=== PATIENT | female | born 2000 | race Caucasian/White ===

== ENCOUNTER 2023-09-04 07:34 | Inpatient (IN) | payer OTHER, SELFPAY ==
[2023-09-03] VITALS (13 sets, daily range): BP systolic 96–136; BP diastolic 50–99; PULSE 98–141; BMI 60.9; BMI 59.6
--- NOTE | 2023-09-03 15:09 | ED.GENMED ---
History of Present Illness
General
Chief Complaint: Dizziness
Source: patient
Exam Limitations: none
Time Seen by Provider: 09/03/23 15:01
Nursing documentation reviewed up to this point in time: agreed with
History of Present Illness
History of Present Illness:
Patient to ED wt complaint of dizziness, SOB, rapid hear rate when standing. Symptoms started last PM. No prior history of same. Denies fever/chills, vomiting, diarrhea. Reports nausea. Denies any chest or abdominal pain. Brought self to ED
for eval.
Past History
Past History
ED Past Medical History: Asthma, GERD, Hypothyroidism and Other (psoriasis, rosacea, Sciatica)
ED Past Surgical History: None
Patient has exhibited threatening behavior?: No
Social History
Tobacco: Non-smoker
Alcohol: Occasional
Drug: None
Personal: Single
Living: with family
Employment: Not employed
Family History
Family History: Diabetes
Review of Systems
Review of Systems
Allergies reviewed?: Yes
All Other Systems: ROS reviewed and negative except as documented in HPI and ROS
Constitutional: Reports no symptoms
EENT: Reports no symptoms
Respiratory: Reports trouble breathing
Cardiac: Reports other (tachycardia)
ABD/GI: Reports nausea
: Reports no symptoms
Musculoskeletal: Reports no symptoms
Skin: Reports no symptoms
Neurological: Reports dizzy
Psychiatric: Reports no symptoms
Phy Exam
General Physical Exam
General Presentation: well appearing and no apparent distress
General age: appears stated age
General Skin: warm and dry
General Habitus: obese
General Mental: alert
Cardiovascular Exam
Cardiovascular Exam: regular rate/rhythm and no edema
Pulmonary Exam
Pulmonary Exam: lungs clear and no respiratory distress
Gastrointestinal Exam
Gastrointestinal Exam: non tender, soft, no organomegaly, no pulsatile mass and no cva tenderness
Rectal Exam: normal external exam, normal sphincter tone, hemorrhoids and no stool
Musculoskeletal Exam
Musculoskeletal Exam: full ROM
Skin Exam
Skin Exam: normal color, warm/dry and no rash
Psychiatric Exam
Psychiatric Exam: normal mood/affect
Course
Orders/Labs/Results
Orders:
Orders
09/03/23 14:28
ECG [Electrocardiogram (*1)] Urgent
Reason for Study: Vertigo / Dizzy
EKG- Treatment ONCE
09/03/23 Dinner
Regular
At Your Request: Full Participation
Does patient need a safe tray?: No
09/03/23 15:07
Orthostatic VS- Treatment ONCE
09/03/23 15:08
Urinalysis Reflex To Culture Urgent
0.9% Sodium Chloride 1000 ml [Nss] 1,000 ml IV BOLUS
Test Result ONCE
09/03/23 15:10
Ondansetron Injectable [Zofran] 4 mg IV NOW STA
09/03/23 15:51
Complete Blood Count/With Diff Urgent
Comprehensive Metabolic Panel Urgent
D-Dimer Urgent
HCG, Serum Qualitative Screen Urgent
Lipase Urgent
TSH Reflex To Free T4 Urgent
09/03/23 16:29
* Blood Bank Products Urgent
Blood Bank Products: *Packed RBC Leuko(PRBC's)
Quantity: 2
Transfuse Today: Yes
Reason: Anemia
09/03/23 16:50
Type And Crossmatch Urgent
09/03/23 17:04
Admit/Transfer Patient As Directed
Co-Sign Provider:
Level of Care: Observation services
Assign to:: Medical/Surgical
Physician / Group: [email or web address]
Diagnosis: anemia
Code Status As Directed
Resuscitation Status: Full Code
09/03/23 18:34
Phenyleph/Pramoxin/Glycr/W.pet [Preparation H Max Strength Pain Relief Cream] See Dose Instructions RECTAL Q6HPRN PRN
09/03/23 18:34
Activity As Directed
Activity Level: As Tolerated
Pneumatic Compression Sleeves As Directed
Type: Knee high
Vital Signs As Directed
Frequency: Per unit guidelines
DX Deep Vein Thrombosis Video Routine
09/03/23 19:48
B12 [Vitamin B12] Routine
Ferritin Routine
Folate Routine
Iron Routine
TIBC [Total Iron Binding] Routine
09/04/23 06:00
Complete Blood Count/With Diff IN AM
Comprehensive Metabolic Panel IN AM
Levothyroxine [Synthroid] 100 mcg PO DAILY @ 0600
09/04/23 08:00
FOLic ACID [Folvite] 1 mg PO DAILY
Meloxicam [Mobic] 15 mg PO DAILY
Multivitamin [Theragran] 1 tablet PO DAILY
Pantoprazole [Protonix] 40 mg PO DAILY
09/04/23 22:00
Methotrexate Sodium [Methotrexate] 15 mg PO WE@2200
Abnormal Lab Results
09/03/23 09/03/23
15:51 16:50
RBC 2.57 L 10^6/uL
(4.20-5.40)
Hgb 7.3 L g/dL
(12.0-16.0)
Hct 22.3 L %
(37.0-47.0)
MCHC 32.7 L g/dL
(33.0-37.0)
RDW 15.8 H %
(11.5-14.5)
Abs Immat Gran (auto) 0.1 H 10^3/uL
(0-0.05)
Immature Gran % 1.3 H %
(0-0.5)
Creatinine 1.1 H mg/dL
(0.6-1.0)
Glucose 112 H mg/dl
(70-99)
ALT 49 H U/L
(0-35)
Crossmatch IS Only See Detail
09/03/23 15:51
09/03/23 15:51
Vital Signs
Initial and Last Documented VS:
Initial Vital Signs
Temp Pulse Resp BP Pulse Ox
99.2 F 110 20 136/99 98
09/03/23 14:24 09/03/23 14:24 09/03/23 14:24 09/03/23 14:24 09/03/23 14:24
Last Documented Vital Signs
Temp Pulse Resp BP Pulse Ox
98.2 F 89 18 121/65 100
09/03/23 21:01 09/03/23 21:01 09/03/23 21:01 09/03/23 21:01 09/03/23 21:01
*Critical Care Note
Total Time (30-74mins, 75-104mins- exclusive of procedures): Not Applicable
Update Note
Update Note:
Hgb 7.3/25.7. No history of anemia. States she is currently working on clearance for bariatric surgery. She had an endoscopy in June which revealed 'ulcers'. Placed on carafate and protonix. Repeat endoscopy 08/12/2023 - resolution of ulcers. She
denies any abdominal pain. COntinues to take pantoprazole daily. Reports 1 small external hemorrhoid which she states bled this week. Reporst small amt of red blood on tissue. Currenlty menstruating. No changes in menstration. Denies heavy
periods. Rectal exam performed. No stool in rectum, no blood. Orthostatic VS results noted. BP remains stable however she becomes tachycardic with minimal movement. SOB with minimal activity. Will admit to hospitalist for symptomatic anemia.
Blood consent obtained. Will initiate transfusion in dept.
ED Attending Note
-
Portions of this chart may have been created with voice recognition software.� Occasional wrong word or��sound alike� substitutions may have occurred due to the inherent limitations of voice recognition software.
Discharge Plan
Departure
Patient Disposition: Admit
Date of Disposition: 09/03/23
Time of Disposition: 16:39
Presentation/result/management discussed w/ accepting MD/DO: Hospitalist
Patient with high blood pressure during this ER visit?: No
Condition: Fair
Covid-19: Not Applicable
Discharge Problem:
Symptomatic anemia
Interventions
Interventions:
*Risk Screen - Suicide Last Done: 09/03/23 14:24
*General Assessment Last Done: 09/03/23 14:24
*Neglect/Abuse Screening Last Done: 09/03/23 14:24
ED- Fall Risk Assessment Last Done: 09/03/23 16:30
*ED COVID-19 Vaccine History Last Done: 09/03/23 18:29
*Nursing Disposition Last Done: 09/03/23 18:20
ED- Neurological Assessment Last Done: 09/03/23 15:14
ED- Cardiac Assessment Last Done: 09/03/23 15:14
ED Swallowing Screen Last Done: 09/03/23 15:17
Discharge Date and Time
Discharge Date/Time: 09/03/23 18:20
--- NOTE | 2023-09-03 15:36 | EDRN ---
IV VAT RN in room w/ pt at this time. Orthostatic VS just completed. Pt had tinnitis when lying flat, sl nausea w/ dizziness on sitting, very dizzy w/ increased nausea and very increased dizziness (described as spinning) and HR up to 141.
[2023-09-03 16:10] LABS: % Basophils 0.5 % (0-2); % Eosinophils 1.2 % (0-6); % Immature Granulocytes 1.3 % (0-0.5); % Lymphocytes 22.4 % (20.5-51.1); % Monocytes 6.8 % (1.7-9.3); % Neutrophils 67.8 % (42.2-75.2); Absolute Basophils 0.1 10^3/uL (0-0.2); Absolute Eosinophils 0.1 10^3/uL (0-0.7); Absolute Immature Granulocytes 0.1 10^3/uL (0-0.05); Absolute Lymphocytes 2.1 10^3/uL (1.2-3.4); Absolute Monocytes 0.6 10^3/uL (0.1-0.6); Absolute Neutrophils 6.4 10^3/uL (1.4-6.5); Hematocrit 22.3 % (37.0-47.0); Hemoglobin 7.3 g/dL (12.0-16.0); Mean Corp Hgb Conc. 32.7 g/dL (33.0-37.0); Mean Corpuscular Hgb 28.4 pg (27.0-31.0); Mean Corpuscular Volume 86.8 fL (81.0-99.0); Mean Platelet Volume 10.2 fL (7.4-10.4); Nucleated Red Blood Cells % 0.3 %; Platelet Count 317 10^3/uL (130-400); Red Blood Cell Count 2.57 10^6/uL (4.20-5.40); Red Cell Dist. Width 15.8 % (11.5-14.5); White Blood Cell Count 9.5 10^3/uL (4.8-10.8)
[2023-09-03 16:24] LABS: ALT (SGPT) 49 U/L (0-35); AST (SGOT) 29 U/L (14-36); Albumin 4.1 g/dl (3.5-5.0); Alkaline Phosphatase 53 U/L (38-126); Blood Urea Nitrogen 13 mg/dl (7-17); Calcium 9.6 mg/dl (8.4-10.2); Carbon Dioxide 23 mmol/L (22-30); Chloride 105 mmol/L (98-107); Estimated Creatinine Clearance > 125 ml/min; Glucose 112 mg/dl (70-99); Lipase 86 U/L (23-300); Potassium 4.4 mmol/L (3.5-5.1); Sodium 138 mmol/L (135-145); Total Bilirubin 0.6 mg/dl (0.2-1.3); Total Protein 6.5 g/dl (6.3-8.2); eGFR > 60.00
[2023-09-03 16:28] LABS: HCG, Serum Qualitative Screen Negative
[2023-09-03] MEDS: ZOFRAN 4 MG IV (16:33)
[2023-09-03] MEDS: NSS 1000 IV (16:33)
[2023-09-03 16:49] LABS: D-Dimer 0.28 ug/mlFEU (0.00-0.50)
[2023-09-03 16:54] LABS: TSH Reflex To Free T4 4.02 uIU/ml (0.47-4.68)
--- NOTE | 2023-09-03 16:59 | EDRN ---
Dr. Aguillon in to see pt for hospitalist group.
--- NOTE | 2023-09-03 17:11 | HPS.HSE ---
Family Physician
-
Family Physician: Shola Armenta
Chief Complaint
-
dizziness
History of Present Illness
22-year-old female past medical history of asthma, GERD, hypothyroidism, psoriatic arthritis, presenting with dizziness, shortness of breath, rapid heart rate when standing and nausea which started last night. Denies fevers or chills, vomiting or
diarrhea, chest pain, abdominal pain or diarrhea. Yesterday she felt that she had some blurry vision described as aural with some headache but this had resolved.
Patient states that she is currently having her period. She does have moderate amount of blood loss during the first 2 days but denies history of heavy periods in the past. She also had hemorrhoidal bleeding over the past few days with a moderate
amount of blood. She does have some rectal discomfort when she attempts to have a bowel movement.
She denies smoking or alcohol use.
Medical History
Past Medical History
Past Medical History: Reports Other (asthma, GERD, hypothyroidism, psoriatic arthritis)
Past Surgical History: Reports None
Social History
Tobacco: Non-smoker
Alcohol: None
Drug: None
Family History
Family History: Not pertinent
Allergies / Home Medications
Allergies reflects when Allergies were last updated in [facility].
Home Medications with original date entered in [facility]
Allergy/Medication List:
Allergies
Allergy/AdvReac Type Severity Reaction Status Date / Time
amoxicillin [Amoxicillin] Allergy Hives Verified 09/03/23 14:24
Penicillins Allergy Hives Verified 09/03/23 14:24
lactose AdvReac Intermediate Nausea / Verified 09/03/23 14:24
Vomiting
Home Medications
adalimumab 40 mg/0.4 mL subcutaneous pen kit (Humira(CF) Pen) 40 mg SC Q2W 09/03/23
folic acid 1 mg tablet 1 mg PO DAILY 09/03/23
levothyroxine 100 mcg tablet 100 mcg PO DAILY 09/03/23
meloxicam 15 mg tablet 15 mg PO DAILY 09/03/23
methotrexate sodium 2.5 mg tablet 15 mg PO WE@2200 09/03/23
pantoprazole 40 mg tablet,delayed release 40 mg PO DAILY 09/03/23
therapeutic multivitamin 1 tab PO DAILY 09/03/23
Review of Systems
-
History Source: Patient
A 12 point ROS was completed and negative except as noted: Yes
Constitutional: Reports No Symptoms
EENT: Reports No Symptoms
Respiratory: Reports No Symptoms
Cardiac: Reports No Symptoms
Abdomen/GI: Reports See HPI
: Reports No Symptoms
Musculoskeletal: Reports No Symptoms
Skin: Reports No Symptoms
Neurological: Reports No Symptoms
Endocrine: Reports No Symptoms
Hematologic/Lymphatic: Reports No Symptoms
Psych: Reports No Symptoms
Physical Exam
Vital Signs
Vital Signs
Temp Pulse Resp BP Pulse Ox
99.2 F 145 16 114/78 100
09/03/23 14:24 09/03/23 15:34 09/03/23 15:34 09/03/23 15:34 09/03/23 15:34
Physical Exam
General: Well Developed, Well Nourished and No Apparent Distress
HEENT: NormoCephalic, Moist mucous membranes and Atraumatic
Respiratory: Clear
Cardiac: S1/S2 and Regular Rhythm; No Murmur or Rub
GI: Soft, Non Tender, Non Distended and Normal Bowel Sounds; No Organomegaly
Rectal: Deferred by Provider
Musculoskeletal: No Clubbing, No Cyanosis and No Edema
Skin: No Rash
Neuro: Nonfocal/grossly intact
Laboratory Results
-
09/03/23 15:51
09/03/23 15:51
Laboratory Results
Total Bilirubin 0.6 mg/dl (0.2-1.3) 09/03/23 15:51
AST 29 U/L (14-36) 09/03/23 15:51
ALT 49 U/L (0-35) H 09/03/23 15:51
Alkaline Phosphatase 53 U/L (38-126) 09/03/23 15:51
Lipase 86 U/L (23-300) 09/03/23 15:51
Data Reviewed
-
Lab Data: Labs Reviewed by me
Old Records: Reviewed
Impression/Plan
-
IMPRESSION:
PLAN:
# Symptomatic normocytic anemia secondary to menstrual losses/hemorrhoidal bleeding
-2 units of blood transfusion
-Check iron studies, B12 and folate
-Preparation H for hemorrhoids, outpatient follow-up with colorectal if persistent problem
Asthma
GERD
-Continue Protonix
Hypothyroidism
-Continue levothyroxine
Psoriatic arthritis
-Continue meloxicam
-On methotrexate
-On Humira
-Continue folate
Full code
DVT prophylaxis�SCDs
Regular diet
--- NOTE | 2023-09-03 18:14 | EDRN ---
Type and cross match results just posted in chart at this time. Pt to go up to floor at this time. pRBCs just showed up ready to infuse.
--- NOTE | 2023-09-03 18:39 | PTCARENOTE ---
Arrived to unit via stretcher, patient stood and pivot to bed due to concerns of dizziness. Oriented to room. Call bel within reach. Advised patient to ring for assistance to bathroom.
[2023-09-03 20:52] LABS: Iron 21 ug/dl (37-170)
[2023-09-03 21:01] LABS: Percent Saturation 6 % (20-50); Total Iron Binding Capacity 331 ug/dl (265-497)
[2023-09-03 21:56] LABS: Folate > 20.0 ng/ml (2.76-20); Vitamin B12 305 pg/ml (239-931)
[2023-09-04] VITALS (8 sets, daily range): BP systolic 123–139; BP diastolic 65–79
--- NOTE | 2023-09-04 03:05 | PTCARENOTE ---
Pt received 2 units of PRBCs. No issues or sign of blood allergic reaction noted at this time.
[2023-09-04] MEDS: SYNTHROID 100 MCG PO (05:34)
[2023-09-04] MEDS: PROTONIX 40 MG PO (07:30)
[2023-09-04] MEDS: MOBIC 15 MG PO (07:30)
[2023-09-04] MEDS: THERAGRAN 1 TABLET PO (07:31)
[2023-09-04] MEDS: FOLVITE 1 MG PO (07:31)
[2023-09-04 07:43] LABS: ALT (SGPT) 40 U/L (0-35); AST (SGOT) 26 U/L (14-36); Albumin 3.1 g/dl (3.5-5.0); Alkaline Phosphatase 43 U/L (38-126); Blood Urea Nitrogen 11 mg/dl (7-17); Calcium 8.8 mg/dl (8.4-10.2); Carbon Dioxide 24 mmol/L (22-30); Chloride 109 mmol/L (98-107); Estimated Creatinine Clearance > 125 ml/min; Glucose 96 mg/dl (70-99); Potassium 3.9 mmol/L (3.5-5.1); Sodium 139 mmol/L (135-145); Total Bilirubin 2.2 mg/dl (0.2-1.3); Total Protein 5.4 g/dl (6.3-8.2); eGFR > 60.00
[2023-09-04] MEDS: VITAMIN B-12 1000 MCG PO (07:54)
[2023-09-04 08:07] LABS: Platelet Count 219 10^3/uL (130-400)
[2023-09-04 08:08] LABS: % Basophils 0.8 % (0-2); % Eosinophils 1.7 % (0-6); % Immature Granulocytes 1.1 % (0-0.5); % Lymphocytes 36.6 % (20.5-51.1); % Neutrophils 52.8 % (42.2-75.2); Absolute Basophils 0.1 10^3/uL (0-0.2); Absolute Eosinophils 0.1 10^3/uL (0-0.7); Absolute Immature Granulocytes 0.1 10^3/uL (0-0.05); Absolute Lymphocytes 2.4 10^3/uL (1.2-3.4); Absolute Monocytes 0.5 10^3/uL (0.1-0.6); Absolute Neutrophils 3.4 10^3/uL (1.4-6.5); Hematocrit 21.6 % (37.0-47.0); Hemoglobin 7.2 g/dL (12.0-16.0); Mean Corp Hgb Conc. 33.3 g/dL (33.0-37.0); Mean Corpuscular Hgb 29.6 pg (27.0-31.0); Mean Corpuscular Volume 88.9 fL (81.0-99.0); Nucleated Red Blood Cells % 0.3 %; Red Blood Cell Count 2.43 10^6/uL (4.20-5.40); Red Cell Dist. Width 15.2 % (11.5-14.5); White Blood Cell Count 6.5 10^3/uL (4.8-10.8)
--- NOTE | 2023-09-04 10:43 | W.PN.HOSP.TC ---
Today's Communication/Plan
-
Monitor hemoglobin
IV iron
GI consult
Request records
Assessment / Plan
Assessment / Plan
Gen-AAOx3, NAD, morbid obesity
HEENT-NC, AT, anicteric, clear oral mm
Neck-supple
CV-reg, no M, +S1/S2
Lungs-clear B/L
Abd-soft, NT, ND
Ext-no edema
Musculoskeletal-no cyanosis, clubbing
Skin-warm and dry
Neuro-grossly non-focal
Psych-calm, cooperative
Symptomatic anemia -due to iron deficiency anemia due to suspected GI bleed. Hemoglobin 7.3 on admission, 7.2 today despite 2 units of transfusion overnight. Recheck hemoglobin at noon time and may need further transfusion. Iron deficiency noted
on labs, IV iron ordered. Degree of anemia is likely not explained by simple hemorrhoids. She denies heavy menses.
Baseline hemoglobin of 14 in February of this year, confirmed with her primary care physician's office.
Elevated total bilirubin noted, check direct bilirubin. Check LDH.
Hx PUD -patient reportedly had gastric ulcers noted on EGD in June 2023, completed in [facility]. Reportedly had resolution of ulcers on repeat EGD on August 11. Treated with Carafate 4 times a day and subsequently Protonix twice daily.
Records have been requested. Given significant hemoglobin drop and symptoms will consult GI. She has never had a colonoscopy.
Stop NSAIDs, she takes meloxicam daily. Discussed with patient.
Psoriatic arthritis -on immunosuppression.
Hypothyroidism -continue levothyroxine.
GERD
Mild intermittent asthma -stable.
Morbid obesity due to excess calories
Full code
Anticipated Discharge: 24 - 48 hours
Subjective/Interval History
-
Date of Service: September 04, 2023
Patient seen and examined. Still feeling lightheaded with standing. Denies shortness of breath.
Objective Data
-
Labs:
Laboratory Results
09/04/23 09/04/23
06:38 12:00
WBC 6.5
Hgb 7.2 L Pending
Hct 21.6 L Pending
Plt Count 219 D
Sodium 139
Potassium 3.9
Chloride 109 H
Carbon Dioxide 24
BUN 11
Creatinine 1.0
Glucose 96
Calcium 8.8
Total Bilirubin 2.2 H D
AST 26
ALT 40 H
Alkaline Phosphatase 43
Vital Signs:
Vital Signs
Temp Pulse Resp BP Pulse Ox
98.9 F 79 16 123/71 100
09/04/23 07:10 09/04/23 07:10 09/04/23 07:10 09/04/23 07:10 09/04/23 07:10
I&O
09/03/23 09/04/23 09/05/23
06:59 06:59 06:59
Intake Total 1000 / 1000
Balance 1000 / 1000
Review of Systems
-
History Source: Patient
All other systems: Reviewed and negative
--- NOTE | 2023-09-04 11:17 | PTCARENOTE ---
Patient received 2 Units of packed RBCs over night. Hgb this morning 7.2. Patient with complaints of SOB when ambulating and slight dizziness. Reinforced to patient to ring for assistance when needing to get OOB. Verbalizes understanding of teaching
and ringing isidro appropriately. Patient to have repeat Hgb this afternoon. B12 oral given and iron IV ordered for this afternoon. Educated patient on new medications and patient understands teaching - denies questions.
[2023-09-04 11:31] LABS: Direct Bilirubin 0.6 mg/dl (0.0-0.4); LDH 188 U/L (120-246)
--- NOTE | 2023-09-04 12:56 | CON.GI ---
Addendum entered and electronically signed by Saad Colunga MD 09/04/23 16:50:
I saw and examined the patient.
The FURNACE KEEPER's note was reviewed and I agree with the note.
Acute symptomatic iron deficiency anemia-denies any overt GI bleeding. Prior history of gastric ulcer. Last EGD in [place] August 2023-resolution of ulcers. No prior colonoscopy
History of psoriasis
Elevated liver test
Hepatic steatosis
Morbid obesity
plan
Continue monitor Hb
Iron supplementation
Patient ate food today. Will keep her on clear liquid tomorrow and schedule for EGD/colonoscopy on Tuesday 09/05 . If negative Capsule endoscopy as outpatient
Original Note:
Consultation
-
Date/Time Consultation Requested: 09/04/23 1040
Date/Time Consultation Performed: 09/04/23 1245
Requesting Provider: Dr. Malik
Performing Provider: Dr. Colunga/CADE Salazar
Reason for Consultation: symptomatic anemia
Medical History
Chief Complaint / HPI
Chief Complaint: dizziness
History of Present Illness:
22-year-old female with past medical history of morbid obesity, psoriatic arthritis, rosacea, sciatica, GERD, peptic ulcer disease, hypothyroidism, possible gastroparesis who presents to the emergency room with dizziness. Asked to evaluate for
symptomatic anemia. The patient states that yesterday in the past couple days she has felt dizzy. She felt particularly dizzy and because of this she proceeded to come to the emergency room. The patient was found to have a hemoglobin of 7.3, she
was transfused 2 units of packed red blood cells and her hemoglobin was 7.2 this morning. Repeat is 7.5 She does have have her menstrual period at the current time however she states that her period is usually 3 to 4 days and she only goes through
3 pads daily. It is never heavy. It is currently not heavy. Her last hemoglobin was checked in February 2023 and this was 14.1. The patient states that she is being evaluated for bariatric surgery and underwent an EGD with her bariatric surgeon
at [place] and on her EGD in February there was food found in her stomach so this was repeated in June. At the EGD in June she states that there were some superficial ulcers that were found. She was placed on Protonix 40 mg twice a day as well as
Carafate. Repeat endoscopy was performed August 12, 2023 and she states that the ulcers had resolved. The patient avoids dunm-uxe-wthbceu NSAIDs. She is on meloxicam for history of psoriatic arthritis. She is also on Humira and methotrexate. The
patient does take folic acid as well. She continues on pantoprazole 40 mg twice a day. The patient denies any fevers, chills, nausea, vomiting, melena, hematochezia, dysphagia or dyne aphasia. No early satiety or unintentional weight loss. Her
last bowel movement was yesterday. Rectal exam was attempted in the ER however there was no stool in the rectal vault. The patient has never had a colonoscopy. She has no family history of inflammatory bowel disease, colon cancer or other GI
malignancies. She has no family history of thalassemia. She has no family history of celiac disease that she is aware of. The patient is not a vegetarian. I performed rectal exam myself and absolutely no stool or any trace of stool in rectal
vault. WBC 6.5, hemoglobin 7.5 up from 7.3 status post 2 units packed red blood cells. MCV the 88.9, MCH 29.6, RDW 15.2, sodium 139, potassium 3.9, chloride 109, CO2 24, BUN 11, creatinine 1.0, glucose 96, iron 21, TIBC 331, percent saturation 6,
ferritin 16, B12 305, folate greater than 20, total bilirubin 2.2 up from 0.6, direct bilirubin 0.6, AST 26, ALT 40, alk phos 43.
Past Medical History
Past Medical History: GERD, Hypothyroidism and Other (Morbid obesity, psoriatic arthritis, rosacea, peptic ulcer disease, possible gastroparesis)
Past Surgical History: None
Social History
Tobacco: Non-Smoker
Alcohol: None
Drug: None
Personal: Single
Family History
Family History: Other (No family history of gastrointestinal malignancy, IBD, celiac disease)
Allergies / Home Medications
Allergy/AdvReac Type Severity Reaction Status Date / Time
amoxicillin [Amoxicillin] Allergy Hives Verified 09/03/23 14:24
lactose Allergy Nausea / Verified 09/03/23 18:38
Vomiting
Penicillins Allergy Hives Verified 09/03/23 14:24
�Medication �Instructions �Recorded
adalimumab 40 mg/0.4 mL 40 mg SC Q2W Autoimmune Disorder 09/03/23
subcutaneous pen kit (Humira(CF)
Pen)
folic acid 1 mg tablet 1 mg PO DAILY Supplement 09/03/23
levothyroxine 100 mcg tablet 100 mcg PO DAILY Thyroid 09/03/23
meloxicam 15 mg tablet 15 mg PO DAILY mild pain 09/03/23
methotrexate sodium 2.5 mg tablet 15 mg PO WE@2200 Anti-Inflammatory 09/03/23
pantoprazole 40 mg tablet,delayed 40 mg PO DAILY Gastrointestinal 09/03/23
release Issue
therapeutic multivitamin 1 tab PO DAILY Supplement 09/03/23
Review of Systems
-
All other systems: A 12 pt ROS was Negative except as stated above in HPI
Vital Signs
Temp Pulse Resp BP Pulse Ox
98.9 F 79 16 123/71 98
09/04/23 07:10 09/04/23 07:10 09/04/23 07:10 09/04/23 07:10 09/04/23 11:13
Physical Exam
Exam
General: No Apparent Distress
HEENT: Anicteric
Respiratory: Clear
Cardiac: Regular Rhythm
GI: Soft, Non Tender, Non Distended and Normal Bowel Sounds
Rectal: Other (No stool in rectal vault)
Skin: Warm and Dry
Neuro: AO x 3
Psych: Calm
Results
WBC 6.5 10^3/uL (4.8-10.8) 09/04/23 06:38
Hgb 7.2 g/dL (12.0-16.0) L 09/04/23 06:38
Hct 21.6 % (37.0-47.0) L 09/04/23 06:38
MCV 88.9 fL (81.0-99.0) 09/04/23 06:38
Plt Count 219 10^3/uL (130-400) D 09/04/23 06:38
Absolute Neuts (auto) 3.4 10^3/uL (1.4-6.5) 09/04/23 06:38
Sodium 139 mmol/L (135-145) 09/04/23 06:38
Potassium 3.9 mmol/L (3.5-5.1) 09/04/23 06:38
Chloride 109 mmol/L (98-107) H 09/04/23 06:38
Carbon Dioxide 24 mmol/L (22-30) 09/04/23 06:38
BUN 11 mg/dl (7-17) 09/04/23 06:38
Creatinine 1.0 mg/dL (0.6-1.0) 09/04/23 06:38
Calcium 8.8 mg/dl (8.4-10.2) 09/04/23 06:38
Total Bilirubin 2.2 mg/dl (0.2-1.3) H D 09/04/23 06:38
AST 26 U/L (14-36) 09/04/23 06:38
ALT 40 U/L (0-35) H 09/04/23 06:38
Alkaline Phosphatase 43 U/L (38-126) 09/04/23 06:38
Lipase 86 U/L (23-300) 09/03/23 15:51
Diagnostic Image Results:
None this admission
Prior GI Procedures:
EGD: Per patient was done by bariatric surgeon. EGD February 2023 'food in stomach'. Repeat June 2023 'stomach ulcers'. Repeat August 12, 2023 'normal, no further ulcers'.
Colonoscopy: Never had
Assessment / Plan
-
22-year-old female with past medical history of morbid obesity, psoriatic arthritis, rosacea, sciatica, GERD, peptic ulcer disease, hypothyroidism, possible gastroparesis who presents to the emergency room with dizziness. Asked to evaluate for
symptomatic anemia. The patient states that yesterday in the past couple days she has felt dizzy. She felt particularly dizzy and because of this she proceeded to come to the emergency room. The patient was found to have a hemoglobin of 7.3, she
was transfused 2 units of packed red blood cells and her hemoglobin was 7.2 this morning. Repeat is 7.5 She does have have her menstrual period at the current time however she states that her period is usually 3 to 4 days and she only goes through
3 pads daily. It is never heavy. It is currently not heavy. Her last hemoglobin was checked in February 2023 and this was 14.1. The patient states that she is being evaluated for bariatric surgery and underwent an EGD with her bariatric surgeon
at [place] and on her EGD in February there was food found in her stomach so this was repeated in June. At the EGD in June she states that there were some superficial ulcers that were found. She was placed on Protonix 40 mg twice a day as well as
Carafate. Repeat endoscopy was performed August 12, 2023 and she states that the ulcers had resolved.
Impression:
Symptomatic anemia-> last known hemoglobin February 2023 was 14.1, currently hemoglobin on arrival to ER was 7.2 status post 2 units packed red blood cells repeat is 7.5 (confirmed on repeat)
--> Patient on chronic folic acid supplementation, appears to have iron deficiency as well as mild B12 deficiency.
--> History of 'stomach ulcers'. On prior EGD performed in June 2023 prior bariatric surgeon. Patient has not had bariatric surgery as of yet. Repeat EGD performed August 11/2024 patient states resolution of ulcers. Maintained on pantoprazole 40
mg twice daily.
--> Normal LDH
Psoriatic arthritis
--> Patient on methotrexate, Humira and meloxicam
GERD/questionable gastroparesis
--> Patient states first endoscopy had food in her stomach
--> Patient maintained on pantoprazole 40 mg twice daily for history of GERD
Elevated bilirubin/ALT
--> Normal LDH
--> Prior ultrasound in the past shows hepatosplenomegaly, hepatic steatosis
--> Patient denies any recent tick bites to her knowledge
---> Denies any abdominal pain, bilirubinuria or acholic stools
Plan:
-Transfuse to keep hemoglobin greater than 7
-Continue iron infusions
-Check stool for occult blood
-Trend LFTs
-Check ultrasound if with continue to have LFT rise or with abdominal pain
-If hemoglobin does not go up consider hematology consultation/smear
-Will obtain records from patient's bariatric surgeon for EGD
-If stool positive for occult blood would consider repeat EGD, may require colonoscopy, VCE as outpatient
-Await celiac panel
-Continue pantoprazole 40 mg twice daily
-Further recommendations to be forthcoming
-
-
Thank you for consultation and allowing me to participate in the patient's care. Please call the [facility] consultant GI physician during the after hours with any questions or concerns.
[2023-09-04] MEDS: FERRLECIT 110 MG IV (13:00)
[2023-09-04 13:04] LABS: Hematocrit 22.5 % (37.0-47.0); Hemoglobin 7.5 g/dL (12.0-16.0)
--- NOTE | 2023-09-04 14:29 | CM ---
Alert awake oriented patient who lives with her mom Janette brother grand mother in a 2 story home with 12 steps to enter and 12 steps to bed/bathroom. She is independent in activates of daily living.She drives.
HNo VN in past . No SNF hx
Pharmacy [facility]
PCP Dr Stubbs
PLAN Home no needs
[2023-09-04] MEDS: MIRALAX 17 GRAMS PO (15:18)
--- NOTE | 2023-09-04 17:28 | PTCARENOTE ---
HGB 7.5 on repeat - status post 2 Units of packed RBCs last night into floor worker transfer bay. Transfused additional one unit of packed RBCs without complication. Vital signs stable. No complaints. No signs/symptoms of allergic reaction noted. Will heme test
stools - no BM as of yet today. HGB 7.5 on repeat - status post 2 Units of packed RBCs last night into floor worker transfer bay.
[2023-09-04] MEDS: PROTONIX IV 40 MG IV (20:00)
[2023-09-04] MEDS: FLUSH (NSS) 1 FLUSH IV (20:00)
[2023-09-04] MEDS: NSS (PRESERVATIVE FREE) 10 ML IV (20:00)
[2023-09-04 20:45] LABS: Urine Albumin Trace (Neg - Trace); Urine Bilirubin Negative (Negative); Urine Character Very Cloudy (Clear); Urine Color Yellow; Urine Glucose Negative (Negative); Urine Ketone Trace (Negative); Urine Leukocyte 1+ (Negative); Urine Nitrite Negative (Negative); Urine Occult Blood 4+ (Negative); Urine Specific Gravity 1.025 (<1.030); Urine Urobilinogen Negative (Neg - 1+)
[2023-09-04 20:51] LABS: Urine Red Blood Cell >100 /HPF (0-2)
[2023-09-04] MEDS: METHOTREXATE 15 MG PO (21:46)
[2023-09-05] MEDS: SYNTHROID 100 MCG PO (05:57)
[2023-09-05 07:54] VITALS: BP 137/70
[2023-09-05 08:06] LABS: % Basophils 0.6 % (0-2); % Eosinophils 1.8 % (0-6); % Immature Granulocytes 1.9 % (0-0.5); % Lymphocytes 31.4 % (20.5-51.1); % Monocytes 5.9 % (1.7-9.3); % Neutrophils 58.4 % (42.2-75.2); Absolute Eosinophils 0.1 10^3/uL (0-0.7); Absolute Immature Granulocytes 0.1 10^3/uL (0-0.05); Absolute Lymphocytes 2.1 10^3/uL (1.2-3.4); Absolute Monocytes 0.4 10^3/uL (0.1-0.6); Hematocrit 23.8 % (37.0-47.0); Hemoglobin 7.8 g/dL (12.0-16.0); Mean Corp Hgb Conc. 32.8 g/dL (33.0-37.0); Mean Corpuscular Hgb 28.8 pg (27.0-31.0); Mean Corpuscular Volume 87.8 fL (81.0-99.0); Mean Platelet Volume 10.1 fL (7.4-10.4); Nucleated Red Blood Cells % 0.4 %; Platelet Count 245 10^3/uL (130-400); Red Blood Cell Count 2.71 10^6/uL (4.20-5.40); Red Cell Dist. Width 15.4 % (11.5-14.5); White Blood Cell Count 6.8 10^3/uL (4.8-10.8)
--- NOTE | 2023-09-05 08:19 | W.PN.HOSP.TC ---
Today's Communication/Plan
-
LDH, haptoglobin
Prep for procedures tomorrow
Monitor hemoglobin
Assessment / Plan
Assessment / Plan
Gen-AAOx3, NAD, morbid obesity
HEENT-NC, AT, anicteric, clear oral mm
Neck-supple
CV-reg, no M, +S1/S2
Lungs-clear B/L
Abd-soft, NT, ND
Ext-no edema
Musculoskeletal-no cyanosis, clubbing
Skin-warm and dry
Neuro-grossly non-focal
Psych-calm, cooperative
Symptomatic anemia -due to iron deficiency anemia due to suspected GI bleed. Hemoglobin 7.3 on admission, 7.8 today. Has had 3 units of blood transfused so far. I am surprised by the lack of a response with the 3 units. Although total bilirubin
elevated and mostly indirect, LDH was normal yesterday. Will recheck LDH and check haptoglobin as well. Low suspicion for hemolysis but will take the precautions and check.
Iron deficiency noted on labs, IV iron ordered. Degree of anemia is likely not explained by simple hemorrhoids. She denies heavy menses. Appreciate GI input, plan for EGD and colonoscopy on Tuesday 09/05.
Baseline hemoglobin of 14 in February of this year, confirmed with her primary care physician's office.
Vitamin B12 low end of normal, 305. Continue oral repletion.
Hx PUD -patient reportedly had gastric ulcers noted on EGD in June 2023, completed in [facility]. Reportedly had resolution of ulcers on repeat EGD on August 11. Treated with Carafate 4 times a day and subsequently Protonix twice daily.
Records have been requested. Given significant hemoglobin drop and symptoms will consult GI. She has never had a colonoscopy.
Stop NSAIDs, she takes meloxicam daily. Discussed with patient.
Psoriatic arthritis -on immunosuppression.
Hypothyroidism -continue levothyroxine. TSH 4.0.
GERD
Mild intermittent asthma -stable.
Morbid obesity due to excess calories
Full code
Anticipated Discharge: 24 - 48 hours
Subjective/Interval History
-
Date of Service: September 05, 2023
Patient seen and examined. Feeling better overall. Mild shortness of breath with standing but denies dyspnea on exertion. Denies lightheadedness.
Objective Data
-
Labs:
Laboratory Results
09/05/23
07:02
WBC 6.8
Hgb 7.8 L
Hct 23.8 L
Plt Count 245
Total Bilirubin Pending
AST Pending
ALT Pending
Alkaline Phosphatase Pending
Vital Signs:
Vital Signs
Temp Pulse Resp BP Pulse Ox
97.9 F 72 19 137/70 97
09/05/23 07:54 09/05/23 07:54 09/05/23 07:54 09/05/23 07:54 09/05/23 07:54
I&O
09/04/23 09/05/23 09/06/23
06:59 06:59 06:59
Intake Total 1000 / 1000 0 / 2160
Balance 1000 / 1000 0 / 2160
Review of Systems
-
History Source: Patient
All other systems: Reviewed and negative
[2023-09-05 09:39] LABS: ALT (SGPT) 37 U/L (0-35); AST (SGOT) 26 U/L (14-36); Albumin 3.3 g/dl (3.5-5.0); Alkaline Phosphatase 47 U/L (38-126); Direct Bilirubin 0.5 mg/dl (0.0-0.4); Total Protein 5.6 g/dl (6.3-8.2)
[2023-09-05 09:48] LABS: LDH 214 U/L (120-246)
[2023-09-05] MEDS: NSS (PRESERVATIVE FREE) 10 ML IV ×2 (09:49→19:56)
[2023-09-05] MEDS: PROTONIX IV 40 MG IV ×2 (09:49→19:56)
[2023-09-05] MEDS: VITAMIN B-12 1000 MCG PO (09:50)
[2023-09-05] MEDS: THERAGRAN 1 TABLET PO (09:50)
[2023-09-05] MEDS: MIRALAX 17 GRAMS PO (09:51)
[2023-09-05] MEDS: FOLVITE 1 MG PO (09:51)
[2023-09-05 11:52] LABS: IgA 82 mg/dl (70-400)
[2023-09-05] MEDS: FERRLECIT 110 MG IV (13:05)
--- NOTE | 2023-09-05 14:05 | W.PN.GI.CBS2 ---
Today's Communication / Plan
-
EGD/colonoscopy tomorrow
Bowel prep today
n.p.o. after midnight
Assessment / Plan
-
-Acute symptomatic iron deficiency anemia ( Hb was 14.1 02/2023 )-denies any overt GI bleeding now except mild hemorrhoidal bleeding in the past . Prior history of gastric ulcer. Last EGD in [place] August 2023-resolution of ulcers. No prior
colonoscopy. s/p 3 units PRBC since admission - lack of response . hb stable around 7. LDH normal. total bili normal today
-History of psoriasis
-Elevated liver test
-Hepatic steatosis
- Morbid obesity
plan
Continue monitor Hb
Iron supplementation
bowel prep today
EGD/colonoscopy 09/05 . If negative Capsule endoscopy as outpatient
Total Time Spent with Patient (in minutes): 35
Subjective
Subjective
Date of Service: September 05, 2023
No GI complaints
Objective
Data Reviewed
Laboratory Data:
Laboratory Results
09/05/23 07:02
09/04/23 06:38
Laboratory Results
Total Bilirubin 1.0 mg/dl (0.2-1.3) D 09/05/23 07:02
AST 26 U/L (14-36) 09/05/23 07:02
ALT 37 U/L (0-35) H 09/05/23 07:02
Alkaline Phosphatase 47 U/L (38-126) 09/05/23 07:02
Lipase 86 U/L (23-300) 09/03/23 15:51
Vital Signs and I&O:
Vital Signs
Temp Pulse Resp BP Pulse Ox
97.9 F 72 19 137/70 97
09/05/23 07:54 09/05/23 07:54 09/05/23 07:54 09/05/23 07:54 09/05/23 07:54
I&O
09/04/23 09/05/23 09/06/23
06:59 06:59 06:59
Intake Total 999
Balance 999
Physical Exam
Physical Exam
GI: Soft, Non Distended and Non Tender
[2023-09-05 15:15] VITALS: BP 129/70
[2023-09-05] MEDS: NULYTELY SOLUTION 4 LITERS PO (16:59)
[2023-09-05] MEDS: ZOFRAN 4 MG IV (21:20)
[2023-09-05 23:30] VITALS: BP 128/84
--- NOTE | 2023-09-06 05:32 | PTCARENOTE ---
Patient only able to finish half of the prep due to nausea
[2023-09-06] MEDS: SYNTHROID 100 MCG PO (05:51)
[2023-09-06 07:15] VITALS: BP 123/76
[2023-09-06 07:26] LABS: % Basophils 0.5 % (0-2); % Eosinophils 1.4 % (0-6); % Immature Granulocytes 1.1 % (0-0.5); % Lymphocytes 29.1 % (20.5-51.1); % Monocytes 6.4 % (1.7-9.3); % Neutrophils 61.5 % (42.2-75.2); Absolute Eosinophils 0.1 10^3/uL (0-0.7); Absolute Immature Granulocytes 0.1 10^3/uL (0-0.05); Absolute Lymphocytes 1.9 10^3/uL (1.2-3.4); Absolute Monocytes 0.4 10^3/uL (0.1-0.6); Hematocrit 26.6 % (37.0-47.0); Hemoglobin 8.5 g/dL (12.0-16.0); Mean Corpuscular Hgb 28.9 pg (27.0-31.0); Mean Corpuscular Volume 90.5 fL (81.0-99.0); Nucleated Red Blood Cells % 0 %; Platelet Count 253 10^3/uL (130-400); Red Blood Cell Count 2.94 10^6/uL (4.20-5.40); Red Cell Dist. Width 15.7 % (11.5-14.5); White Blood Cell Count 6.4 10^3/uL (4.8-10.8)
--- NOTE | 2023-09-06 08:28 | W.PN.HOSP.TC ---
Addendum entered and electronically signed by Jose G Malik DO 09/06/23 14:18:
EGD showed normal stomach, normal esophagus, duodenitis, biopsies done.
Colonoscopy showed hemorrhoids on perianal exam, sigmoid diverticulosis, stool in the rectum, rectosigmoid colon and cecum.
No bleeding found on exam. GI recommends outpatient video capsule endoscopy.
Stable for discharge. Outpatient follow-up.
Recommend stopping meloxicam and avoiding NSAIDs on discharge.
Original Note:
Today's Communication/Plan
-
EGD, colonoscopy today
Assessment / Plan
Assessment / Plan
Gen-AAOx3, NAD, morbid obesity
HEENT-NC, AT, anicteric, clear oral mm
Neck-supple
CV-reg, no M, +S1/S2
Lungs-clear B/L
Abd-soft, NT, ND
Ext-no edema
Musculoskeletal-no cyanosis, clubbing
Skin-warm and dry
Neuro-grossly non-focal
Psych-calm, cooperative
Symptomatic anemia -due to iron deficiency anemia due to suspected GI bleed. Hemoglobin 7.3 on admission, 8.5 today. Has had 3 units of blood transfused so far.
Iron deficiency noted on labs, IV iron ordered. Degree of anemia is likely not explained by simple hemorrhoids. She denies heavy menses. Appreciate GI input, plan for EGD and colonoscopy today.
Baseline hemoglobin of 14 in February of this year, confirmed with her primary care physician's office.
Vitamin B12 low end of normal, 305. Continue oral repletion.
Hx PUD -patient reportedly had gastric ulcers noted on EGD in June 2023, completed in [facility]. Reportedly had resolution of ulcers on repeat EGD on August 11. Treated with Carafate 4 times a day and subsequently Protonix twice daily.
Records have been requested. Given significant hemoglobin drop and symptoms will consult GI. She has never had a colonoscopy.
Stop NSAIDs, she takes meloxicam daily. Discussed with patient.
Psoriatic arthritis -on immunosuppression.
Hypothyroidism -continue levothyroxine. TSH 4.0.
GERD
Mild intermittent asthma -stable.
Morbid obesity due to excess calories
Full code
Anticipated Discharge: Within 24 hours
Subjective/Interval History
-
Date of Service: September 06, 2023
Patient seen and examined. No complaints.
Objective Data
-
Labs:
Laboratory Results
09/06/23
06:40
WBC 6.4
Hgb 8.5 L
Hct 26.6 L
Plt Count 253
Vital Signs:
Vital Signs
Temp Pulse Resp BP Pulse Ox
97.8 F 78 20 123/76 99
09/06/23 07:15 09/06/23 07:15 09/06/23 07:15 09/06/23 07:15 09/06/23 07:15
I&O
09/05/23 09/06/23 09/07/23
06:59 06:59 06:59
Intake Total 2160 / 2160 480 / 480
Balance 2160 / 2160 480 / 480
Review of Systems
-
History Source: Patient
All other systems: Reviewed and negative
[2023-09-06] MEDS: FOLVITE 1 MG PO (08:31)
[2023-09-06] MEDS: VITAMIN B-12 1000 MCG PO (08:31)
[2023-09-06] MEDS: MIRALAX PO (08:32)
[2023-09-06] MEDS: THERAGRAN 1 TABLET PO (08:32)
[2023-09-06] MEDS: PROTONIX IV 40 MG IV (08:32)
[2023-09-06] MEDS: NSS (PRESERVATIVE FREE) 10 ML IV (08:33)
--- NOTE | 2023-09-06 13:47 | W.PN.UPDATE ---
Update Note
Progress Note Update
s/p EGD and Colonoscopy today for evaluation of Iron Deficiency Anemia. No source of active GI bleed found. Please see procedure reports for more detailed findings.
Recommendations:
-Resume regular diet
-okay to d/c from GI perspective
-outpatient VCE
GI will sign off. Please call with questions.
--- NOTE | 2023-09-06 14:16 | W.DS.TRANS ---
DC Summary - [employer] Chief
-
Discharge Instructions:
Discharge Diagnosis/Procedures Symptomatic anemia
Diet Regular
Activity As tolerated
Driving Restrictions As prior to admission
Bathing Restrictions None
Blood Work CBC in 1 week with your primary care doctor
Instructions:
Stand-Alone Forms:
Changes to Home Medications: Yes
Discharge Medications:
DC Medications w/original date entered in [facility]
adalimumab 40 mg/0.4 mL subcutaneous pen kit (Humira(CF) Pen) 40 mg SC Q2W Autoimmune Disorder 09/03/23
folic acid 1 mg tablet 1 mg PO DAILY Supplement 09/03/23
levothyroxine 100 mcg tablet 100 mcg PO DAILY Thyroid 09/03/23
methotrexate sodium 2.5 mg tablet 15 mg PO WE@2200 Anti-Inflammatory 09/03/23
pantoprazole 40 mg tablet,delayed release 40 mg PO DAILY Gastrointestinal Issue 09/03/23
therapeutic multivitamin 1 tab PO DAILY Supplement 09/03/23
cyanocobalamin (vitamin B-12) 1,000 mcg tablet 1,000 mcg PO DAILY #30 tabs 09/06/23
phenylephrine 0.25 %-pramoxine 1 %-glycerin-wh.petrolatum rectal cream (Preparation H Maximum Strength) 1 applic SD Q6HPRN PRN hemorroidal disomfort #26 grams 09/06/23
Home Medication Changes
Stop meloxicam
Pending Results: No
[2023-09-06 14:30] VITALS: BP 137/67
[2023-09-06] MEDS: FERRLECIT 110 MG IV (14:36)
[2023-09-06 15:30] VITALS: BP 108/81
--- NOTE | 2023-09-06 15:39 | PTCARENOTE ---
Received patient this am AAOx3. Pt was still drinking bowel prep. GI Unit made aware. Continual updates given to GI Nurse in regards to patients prep status. Pt made NPO at 10am. Pt given Tap water enema as ordered with moderated results. Pt sent
to GI Lab.
--- NOTE | 2023-09-06 15:45 | PTCARENOTE ---
Received patient from GI Unit S/P Endoscopy and Colonoscopy. AAox3. VSS. Pt offered no complaints. Made patient comfortable. Cont to assess patient status.
[2023-09-06 16:30] VITALS: BP 128/84
--- NOTE | 2023-09-06 17:47 | CM ---
patient stable for dc home with no needs.family to transport home.
[2023-09-07 08:04] LABS: Haptoglobin 58 mg/dL (30-200)
[2023-09-07 12:26] LABS: Endomysial IgA Antibody Titer 1:40 (<1:10)
[2023-09-11 15:21] LABS: tTG IgA Antibody 65.6 EU/ml (0-19)
== END 2023-09-06 18:37 | disposition home or self-care (01) | DRG 811 ==
LOC: 4 EAST ACU 07:34
PROVIDERS: Internal Medicine; Nurse Practitioner; ADMITTING PHYSICIAN Hospitalist; ATTENDING PHYSICIAN Hospitalist; CONSULT PHYSICIAN Internal Medicine Gastroenterology; EMERGENCY PHYSICIAN Emergency Medicine; FAMILY PHYSICIAN Family Medicine
PROC: 30233N1 Transfusion of Nonautologous Red Blood Cells into Peripheral Vein, Percutaneous Approach (ICD-10-PCS; 2023-09-04)
PROC: 0DJD8ZZ Inspection of Lower Intestinal Tract, Via Natural or Artificial Opening Endoscopic (ICD-10-PCS; 2023-09-06)
PROC: 0DB98ZX Excision of Duodenum, Via Natural or Artificial Opening Endoscopic, Diagnostic (ICD-10-PCS; 2023-09-06)
DX: D50.0 Iron deficiency anemia secondary to blood loss (chronic) (principal); K29.81 Duodenitis with bleeding; D84.821 Immunodeficiency due to drugs; Z68.44 Body mass index [BMI] 60.0-69.9, adult; L40.50 Arthropathic psoriasis, unspecified; K76.0 Fatty (change of) liver, not elsewhere classified; E03.9 Hypothyroidism, unspecified; J45.20 Mild intermittent asthma, uncomplicated; E66.01 Morbid (severe) obesity due to excess calories; R16.2 Hepatomegaly with splenomegaly, not elsewhere classified; K21.9 Gastro-esophageal reflux disease without esophagitis; K57.30 Diverticulosis of large intestine without perforation or abscess without bleeding; K64.9 Unspecified hemorrhoids; E53.8 Deficiency of other specified B group vitamins; Z79.620 Long term (current) use of immunosuppressive biologic; Z79.631 Long term (current) use of antimetabolite agent; Z79.890 Hormone replacement therapy; Z79.899 Other long term (current) drug therapy; Z87.11 Personal history of peptic ulcer disease; Z88.0 Allergy status to penicillin
CPT/HCPCS: 88305; 80053; 80076; 81003; 81015; 82248; 82607; 82728; 82746; 82784; 83010; 83516; 83540; 83550; 83615; 83690; 84443; 84703; 85014; 85018; 85025; 85379; 86231; 86850; 86900; 86901; 86920; 87086; 93005; 96374; 99285; J2916; J8610; P9016